=== PATIENT | male | born 1950 | race Caucasian/White ===

== ENCOUNTER 2025-03-26 18:06 | Inpatient (IN) | payer MEDICARE ==
[~2025-03-26] VITALS: Ht 170.2 cm; Wt 74.8 kg
--- NOTE | 2025-03-26 18:16 | ELECTROCARDIOGRAPH REPORT ---
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 WAYLON Mandel Measurements Intervals [place] Rate: 68 P: 22 OK: 136 QRS: 188 QRSD: 112 T: 94 QT: 411 QTc: 438 Interpretive Statements Sinus rhythm Probable lateral infarct, age indeterminate Electronically Signed On 03-27-2025 17:08:[address] WAYLON Mandel Please click the below link to view image of tracing.
[2025-03-26 18:27] LABS: MEAN PLATELET VOLUME 7.7 FL (7.4-10.4); RED CELL DISTRIBUTION WIDTH 13.4 % (11.5-14.5)
--- NOTE | 2025-03-26 18:38 | RADIOLOGY REPORT ---
CHEST RADIOGRAPH Indication: CP Technique: Single frontal view of the chest was obtained COMPARISON: None FINDINGS: Lines and Tubes: None Lungs: Clear Pleura: No effusion. No pneumothorax. Cardiomediastinal contours: Unremarkable Bones: No acute osseous abnormality. ACDF. IMPRESSION: No acute disease.
[2025-03-26 18:51] LABS: CREATININE 1.17 MG/DL (0.60-1.10); PRO BRAIN NATRIURETIC PEPTIDE 245 PG/ML (0-125); TOTAL CARBON DIOXIDE 28.1 MMOL/L (24-32); eCRCL 53 ML/MIN; eGFR 61 ML/MIN
--- NOTE | 2025-03-26 19:01 | Physician Documentation ---
History of Present Illness ~ Chief Complaint: Shortness of Breath Stated Complaint: SOB/ L ARM PAIN Time Seen by MD: 19:00 HPI Patient presents to the emergency room for evaluation of chest pain and shortness of breath. Onset of symptoms last night. Associated nausea vomiting with some degree of radiation into his left upper extremity. History of previous stroke as well as heart attacks. [facility]. No current symptoms. Patient does have history of atrial fibrillation that has not taken apixaban or Plavix today. Patient reports it has been many years since his last stress test. Medication Reconciliation Allergies: Coded Allergies: No Known Allergies (Unverified , 03/26/25) Review of Systems ROS All review of systems negative except as per HPI Physical Exam Vital Signs: Temperature: 97.3, Source: Temporal, Heart Rate: 60, Respiratory Rate: 12, BP: 117/67, Pulse Oximetry: 98, Weight: 72.730 Oxygen Flow Rate: 0 Physical Exam General: Patient is awake, alert, oriented x4 in no acute distress Head: Normocephalic and atraumatic. Eyes: Conjunctival normal. EOMI. PERRL. ENT: Mucous membranes moist. Neck: Supple, trachea is midline. Chest: Clear to auscultation bilaterally without rales, rhonchi, or wheezes. There is no accessory muscle use or retractions. Cardiac: RRR without murmurs, gallops, or rubs. Extremities: Normal strength. Normal range of motion. No deformities or edema. No calf tenderness to palpation Progress Results/Orders Results/Orders Orders - KRIS ELY MD Chest,Single View (03/26/25 18:25) Monitor (03/26/25 18:07) Saline Lock (03/26/25 18:07) Oxygen (03/26/25 18:07) Hs Troponin I W Calculations (03/26/25 20:07) Hs Troponin I W Calculations (03/26/25 21:07) Heparin 25,000 Unit/250ml Bag (Heparin 2 (03/26/25 19:10) Heparin 10,000 Unit/Ml 1ml (Heparin 10,0 (03/26/25 19:10) Cbc/Diff (03/27/25 03:00) Cbc/Diff (03/28/25 03:00) Cbc/Diff (03/29/25 03:00) Cbc/Diff (03/30/25 03:00) Cbc/Diff (03/31/25 03:00) Page Hospitalist (03/26/25 19:14) Fill Out Med Reconciliation (03/26/25 19:14) Cardiac Ptt (03/27/25 01:30) Svn Treatment (03/26/25 19:51) Completed Orders - KRIS ELY MD Chest,Single View (03/26/25 18:25) Cbc/Diff (03/26/25 18:07) BMP (03/26/25 18:07) PBNP (03/26/25 18:07) Electrocardiogram (03/26/25 18:07) Hs Troponin I W Calculations (03/26/25 18:07) Aspirin 325mg Tablet (Aspirin 325mg Tabl (03/26/25 19:10) Pt Inr (03/26/25 19:08) PTT (03/26/25 19:08) Heparin 10,000 Unit/Ml 1ml (Heparin 10,0 (03/26/25 19:10) Heparin 10,000 Unit/Ml 1ml (Heparin 10,0 (03/26/25 19:25) Hgb A1c (03/26/25 18:21) Ipratropium/Albuterol Nebule (Ipratrop/A (03/26/25 19:55) Medications Received in ER Medications (Trade) Dose Ordered Sig/Jonah Route PRN Reason Start Time Stop Time Status Last Admin Dose Admin (aspirin 325mg tablet) 1 tab ONCE ONCE PO 03/26/25 19:10 03/26/25 19:15 DC 03/26/25 19:37 1 TAB Heparin Sodium/ Dextrose 250 ml @ 9 mls/hr [id number] PRN IV TO MAINTAIN PTT WITHIN RANGE 03/26/25 19:10 03/26/25 19:32 9 MLS/HR (heparin 10,000 unit/ml 1ml inj) 4,000 units ONCE ONCE IV 03/26/25 19:25 03/26/25 19:26 DC 03/26/25 19:36 4,000 UNITS Vital Signs 03/26/25 03/26/25 03/26/25 03/26/25 18:25 18:42 18:46 19:48 Temp 97.3 Pulse 66 60 Resp 16 12 B/P (MAP) 96/59 117/67 (84) Pulse Ox 98 98 98 O2 Delivery Room Air* O2 Flow Rate 0 0 0 FiO2 21 03/26/25 19:52 Temp 97.3 Pulse 54 Resp 14 B/P (MAP) 131/69 (89) Pulse Ox 99 O2 Flow Rate 0 FiO2 21 Laboratory Tests Test 03/26/25 18:21 White Blood Count 4.6 Red Blood Count 4.61 L Hemoglobin 14.3 Hematocrit 41.6 L Mean Corpuscular Volume 90.2 Mean Corpuscular Hemoglobin 30.9 Mean Corpuscular Hemoglobin Concent 34.2 Red Cell Distribution Width 13.4 Platelet Count 197 Mean Platelet Volume 7.7 Neutrophils (%) (Auto) 50.1 Lymphocytes (%) (Auto) 30.9 Monocytes (%) (Auto) 9.0 Eosinophils (%) (Auto) 8.9 H Basophils (%) (Auto) 1.1 H Neutrophils # (Auto) 2.3 Lymphocytes # (Auto) 1.4 Monocytes # (Auto) 0.4 Eosinophils # (Auto) 0.4 Basophils # (Auto) 0.0 CBC Comment Prothrombin Time 11.3 INR International Normalized Ratio 1.1 Activated Partial Thromboplast Time 29 Coagulation Comments Sodium Level 137 Potassium Level 4.0 Chloride Level 102 Carbon Dioxide Level 28.1 Anion Gap 7 L Blood Urea Nitrogen 9 Creatinine 1.17 H Estimated GFR/1.73 m2 61 BUN/Creatinine Ratio 7.7 L Glucose Level 145 H Hemoglobin A1c 6.6 H Calcium Level 8.4 L Troponin I High Sensitivity 130 *H Pro-B-Type Natriuretic Peptide 245 H Albumin 4.3 Chemistry Comments EKG/XRAY/CT/US/VASC/MRI EKG : Additional Comment EKG interpreted by myself shows time of 18 15, rate 68, sinus rhythm, normal axis, no ST changes Medical Decision Making Additional information obtaine: N/A Findings Patient presents to the emergency room with chief complaint of chest pain as per HPI. Differentials include but are not limited to ACS, pulmonary embolism, aortic pathology, musculoskeletal pain, reflux therefore emergent labs and ninfa ging is indicated. Patient is not having any current symptoms therefore I do not believe he is suffering from pulmonary embolism or aortic pathology. Noted elevation of troponins with no ST-elevation on EKG. Given patient's history of myocardial infarction along with chief complaint of chest pain I have initiated aspirin and heparin and we will admit for further investigation. Heart Score: 5 Differential Dx:Considerations: Include: anxiety, asthma, bronchitis, cardiogenic shock, CHF, COPD, dysrhythmia, hypertension, accelerated, hypertension, essential, hypertension, malignant, hyperventilation, hyponatremia, myocardial infarction, panic attack, pneumonia, pneumonitis, pneumothorax, PSVT, pulmonary embolism, respiratory distress, respiratory failure, sinusitis, upper resp. infection, other Departure Admitted to Inpatient Unit: yes, to hospitalist Impression: Primary Impression: NSTEMI (non-ST elevated myocardial infarction) Condition: Guarded Referrals: NO PRIMARY CARE PROVIDER (PCP) Critical Care Note Total Time (mins): 30 Critical Care Note The very real possibility of a deterioration of this patient's condition required the highest level of my preparedness for sudden, emergent intervention. I provided critical care services, which included medication orders, frequent reevaluations of the patient's condition and response to treatment, ordering and reviewing test results, and discussing the case with various consultants. Excludes time spent performing separately billable procedures. The critical care time associated with the care of the patient was 30 minutes not counting procedures Signature Scribe Signature: No scribe Attestation: The note accurately reflects work and decisions made by me.Kris Ely MD 03/26/25 19:13 KRIS ELY MD Mar 26, 2025 19:01
[2025-03-26] MEDS ORDERED: heparin 10,000 units/1 ML INJ IV PRN (19:10)
[2025-03-26] MEDS ORDERED: heparin 10,000 units/1 ML INJ IV ONE (19:15)
[2025-03-26 19:21] LABS: APTT 29 SECONDS (22-32); INR 1.1 INR
[2025-03-26] MEDS ORDERED: potassium Cl 40MEQ/1/2NS 520ml 520 ML IV PRN (19:30)
[2025-03-26] MEDS ORDERED: magnesium sulf-water 2g/50mL 50 ML IV PRN (19:30)
[2025-03-26] MEDS ORDERED: potassium Cl 20 mEq SR tablet PO PRN ×2 (19:30)
[2025-03-26] MEDS ORDERED: magnesium sulf-water 4G/100mL 100 ML IV PRN (19:30)
[2025-03-26] MEDS ORDERED: magnesium Cl slow-release 64mg tablet PO PRN (19:30)
[2025-03-26] MEDS ORDERED: ondansetron/PF 4mg/2ml inj IV PRN (19:30)
[2025-03-26] MEDS: heparin 25,000 UNIT/250ml bag 250 ML IV PRN (19:32)
[2025-03-26] MEDS: heparin 10,000 units/1 ML INJ IV ONE ×2 (19:36→19:37)
[2025-03-26] MEDS: PERFLUTREN PROTEIN-A MICROSPHR (Optison) 0.22 MG/ML 3ML VIAL IV ONE (19:41)
[2025-03-26] MEDS: ipratropium/albuterol 3ml nebule NEB ONE (20:05)
[2025-03-26 20:06] VITALS: PULSE 55; RESP 18; O2SAT 100
[2025-03-26] MEDS: MESSAGE TO NURSING IV ONE (20:12)
[2025-03-26 20:19] VITALS: PULSE 62; RESP 14; O2SAT 100
[2025-03-26 20:49] VITALS: BP 130/62; PULSE 57; RESP 13; TEMP 97.4; O2SAT 99
--- NOTE | 2025-03-26 20:51 | HISTORY AND PHYSICAL-Residence ---
History & Physical Providers to CC Resident Creating Document: AMADO PUENTE RES CC: LAY HO MD ~ History of Present Illness Primary Medical Doctor: [facility] Reason for Admit\Complaint: Chest pain and discomfort for past two days History of Present Illness 75-year-old male with past medical history of PAF on apixaban, CVA with left- sided hemiparesis, CAD s/p stents to LAD, RCA, hypertension, type 2 diabetes mellitus presented to the ER with chief complaints of chest pain. He describes pain in the epigastrium, sharp, tightening sensation, associated with shortness of breaths, radiating to left lateral on associated with paresthesias, which started at 10:00 a.m. yesterday it persisted for 30 minutes to 1 hour and then relieved spontaneously. He had similar kind of chest pain today morning and the shortness of breath was worsening. He has no history of recent sildenafil intake. Denies fever palpitations, dizziness. He had similar kind of chest pain in 2006 and undergone stents that time. Currently pain is relieved however he is feeling anxious. He went to [facility] and they recommended him to go to ER Allergies: Coded Allergies: No Known Allergies (Unverified , 03/26/25) Past Medical History Past Medical History Paroxysmal atrial fibrillation on apixaban Type 2 diabetes mellitus on insulin Hypertension Hyperlipidemia statin and ezetimibe CVA with left residual hemiparesis in 2016, currently on Plavix History of HI in 2006, undergone angiogram with stents to LAD and RCA History of HI in 2016 with recent in of RCA Obstructive sleep apnea -using CPAP intermittently Anxiety BPH Past Surgical History Surgical History Comment Appendectomy Cervical laminar fusion surgery Past Social History Social History Comment Nonsmoker, denies alcohol intake, denies illicit drug use, independent for ADLs, uses cane for ambulation 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 no change in appetite/weight HEENT: No blurring of the vision, No sore throat, epistaxis, tinnitus Cardiovascular: Complaining of chest discomfort, shortness of breath, no orthopnea No palpitations, syncope. No pedal edema Respiratory: No cough,, hemoptysis Gastrointestinal: No abdominal pain, nausea, vomiting. No diarrhea, constipation, melena. Genitourinary: Does have dysuria secondary to BPH No frquency, urgency, incontinence, nocturia. No hematuria Musculoskeletal: No arthralgia, myalgia Endocrine: No fatigue, polydipsia, polyuria. No heat or cold intolerance Neurologic: Positive for recent gait changes, swinging of the case, weakness of the left upper and lower extremity since 2016 No headache, vertigo. No weakness, numbness or tingling of extremities Psychiatric: History of anxiety attacks No hallucinations/delusions, no anhedonia, no suicidal ideation\ Hematologic: No bleeding or bruises Reviewed in full. All negative except for pertinent positives in HPI Exam Vitals: Vital Signs Date Time Temp Pulse Resp B/P (MAP) Pulse Ox O2 Delivery O2 Flow Rate FiO2 03/26/25 20:19 62 14 100 Room Air* 0 21 03/26/25 19:52 97.3 131/69 (89) General: General: Pleasant elderly male, AAO x4, not in apparent distress, in the middle of conversation patient got emotional and said that he does not want to stay here and cried. He stated he has anxiety attacks Head: Normocephalic with an atraumatic Eyes: Pupils- 3mm, reacting to light, conjunctiva- anicteric Nose and throat: No polyps, septum- normal, no mucosal ulcers Neck: Supple, no lymphadenopathy, no carotid bruit Respiratory: No use of accessory muscles of respiration, Bilateral normal vesiscular breath sounds heard. No wheeze, rhochi or creps Cardiac: S1-S2 heard, rythm regular, no gallop/murmur Abdomen: non distended, no tenderness, no organomegaly, bowel sounds- heard Extremities: Discoloration of the both lower extremities however no pedal edema no clubbing, no deformities, peripheral pulses- 2+ Skin: warm and dry, no rash, no purpura Neuro: Left upper limb and lower limb power 4- by five No new onset focal deficit, gross cranial nerve exam- normal Diagnostic Data Last Recorded Lab Results: 03/26/25182003/26/251820 Diagnostic Data: Laboratory Tests Test 03/26/25 18:21 Prothrombin Time 11.3 SECONDS (9.0-12.0) INR International Normalized Ratio 1.1 INR Activated Partial Thromboplast Time 29 SECONDS (22-32) Coagulation Comments Advance Care Planning Advanced Care plannin - 30 Minutes (Code status is discussed with him and he is full code however patient states that he has had cardiac arrest he would like his to make decisions regarding further resuscitative measures once the resuscitation was started) Additional Plan 75-year-old male with past medical history of PAF on apixaban, CVA with left- sided hemiparesis, CAD s/p stents to LAD, RCA, hypertension, type 2 diabetes mellitus presented to the ER with chief complaints of chest pain at rest. Wells score-0 NSTEMI- suspect anterolateral wall HI CAD, s/p stents to LAD, RCA -heart score- 6 -LIDIA score- 5- -sandra score- 114 (6 %-Probability of from admission to 6 months) -EKG showed sinus Tyrese, low voltage complexes in limb leads, T-wave inversions in V2 to V6, I, aVL with lead progression of R-wave -high sensitivity troponins x3 130, -received aspirin 325 mg in the ER and started on heparin drip Plan -continue heparin drip -follow up on 2D echo, lipid panel, repeat EKG in the a.m. -aspirin 81 mg once daily, atorvastatin 40 mg once daily -NTG patch 0.1 mg/hour for chest pain -metoprolol not started in view of bradycardia -consulted coremaker Dr. Daja Kaplan, awaiting recommendations Paroxysmal atrial fibrillation CHADS-VASc six -current EKG sinus, -hold apixaban -resume home meds once medication reconciliation is done Hypertension -current blood pressure 130/69 -monitor BP, and resume home meds once med rec was done Type 2 diabetes mellitus with A1c of 6.6 -current blood glucose was 145 -started on low-dose insulin 6 units t.i.d. and low-dose supplemental insulin protocol Possible Stephen -cr-1.17, baseline- unknown -f/u on urine lytes and bmp -hydrate with NS before angiogram CVA with left residual hemiparesis -takes Plavix and atorvastatin at home. -has a new onset gait difficulties for the past one month and ordered CT brain for the morning cpap NOLAN -uses CPAP intermittently BPH -continue his home medications of tamsulosin Anxiety -patient had an anxiety episode, given Valium 2.5 mg one dose p.o. Code Status: Full code Line/tube: PIV DVT prophylaxis: Heparin Nutrition: Heart healthy diet, NPO after midnight PT: Yes Prognosis: Guarded Disposition: Continue care in PCU, cardiology recommendations pending, med rec pending Amado Puente MD PGY-3 resident Attending Physician Attestation Evaluation via HIPAA compliant A/V device. I discussed the case with the resident and I agree with the resident's documentation. 75-year-old man with a history of CAD s/p PCI with COBY, essential hypertension, paroxysmal atrial fibrillation, diabetes mellitus type 2, prior stroke with residual left hemiparesis and obstructive slee now admitted with anginal symptoms.Criteria are met for NSTEMI. The treatment plan includes: Usual medical therapy for ACS including antiplatelet therapy with aspirin and clopidogrel, statin therapy, IV UFH and topical nitrates. A transthoracic echocardiogram has been ordered and a Cardiology consultation has been requested. The patient's heart rate is less than 60 off rate-control medications. Expectant management. Control of hyperglycemia with a correctional insulin sliding scale. Time spent 50 minutes. Date of Service: Mar 26, 2025 Billing Provider: LAY HO MD, HARIVARSHA, RES Mar 26, 2025 20:51 LAY HO MD Mar 27, 2025 06:53
[2025-03-26] MEDS ORDERED: dextrose 50%-water 50ml dispensing syringe IV PRN ×2 (21:40)
[2025-03-26] MEDS ORDERED: DEXTROSE 15 GM of carb/4 tabs (each vial/BOTTLE has 4 tablets) PO PRN ×2 (21:40)
[2025-03-26] MEDS ORDERED: glucagon, human recombinant 1mg kit SUBCUT PRN (21:40)
[2025-03-26 22:00] VITALS: BP 135/48; PULSE 58; RESP 13; RESP 16; TEMP 98.6; O2SAT 98; O2SAT 99
[2025-03-26] MEDS: K and/or MAG REPLACEMENT MC SCH (22:10)
[2025-03-26] MEDS: docusate sod 100mg capsule PO SCH (22:16)
[2025-03-26] MEDS ORDERED: APIX5TAB3 PO (23:53)
[2025-03-26] MEDS ORDERED: SIME80TA16 PO (23:53)
[2025-03-26] MEDS ORDERED: ROSU40TA89 PO (23:53)
[2025-03-26] MEDS ORDERED: DICL100G59 TOP (23:53)
[2025-03-26] MEDS ORDERED: ZOLP5TAB19 PO (23:53)
[2025-03-26] MEDS ORDERED: MECL-302 PO (23:53)
[2025-03-26] MEDS ORDERED: EZET10TA6 PO (23:53)
[2025-03-26] MEDS ORDERED: ERYT1OIN6 LEFTEYE (23:53)
[2025-03-26] MEDS ORDERED: NITR0.4T48 SL (23:53)
[2025-03-26] MEDS ORDERED: INSU300I10 SUBCUT (23:53)
[2025-03-26] MEDS ORDERED: SPIR25TA PO (23:53)
[2025-03-26] MEDS ORDERED: TAMS-55 PO (23:53)
[2025-03-26] MEDS ORDERED: TIOTROP INH (23:53)
[2025-03-26] MEDS ORDERED: PROP10DR4 EACHEYE (23:53)
[2025-03-26] MEDS ORDERED: KETO15CR2 TOP (23:53)
[2025-03-26] MEDS ORDERED: FURO40TA4 PO (23:53)
[2025-03-26] MEDS ORDERED: PANT40TA54 PO (23:53)
[2025-03-26] MEDS ORDERED: HYDR-3965 PO (23:53)
[2025-03-26] MEDS ORDERED: OLODATEROL INH (23:53)
[2025-03-26] MEDS ORDERED: albuterol INH (23:53)
[2025-03-27] VITALS (18 sets, daily range): BP systolic 71–134; BP diastolic 35–66; PULSE 49–81; RESP 13–19; TEMP 97.3–97.6; O2SAT 96–100
[2025-03-27 00:52] LABS: LEUKOCYTE ESTERASE ,URINE NEGATIVE (Neg); NITRITES, URINE NEGATIVE (Neg); OCCULT BLOOD,URINE SMALL (Neg)
[2025-03-27 00:53] LABS: UA COLLECTION TYPE NON-SPECIFIED
[2025-03-27 00:55] LABS: SQUAMOUS EPITHELIAL CELL,UR FEW /LPF (FEW)
[2025-03-27 01:08] LABS: OSMOLALITY UA 141 MOSM/K (50-1400)
[2025-03-27 01:32] LABS: CREATININE,URINE RANDOM 29.4 MG/DL; UA UREA RANDOM 142.0 MG/DL
[2025-03-27 01:42] LABS: TOTAL PROTEIN,URINE RANDOM < 6.0 MG/DL
[2025-03-27 02:10] LABS: MEAN PLATELET VOLUME 7.8 FL (7.4-10.4); RED CELL DISTRIBUTION WIDTH 13.2 % (11.5-14.5)
[2025-03-27 02:12] LABS: CHOL/HDL RATIO 2.7 (0.00-4.99); CREATININE 1.12 MG/DL (0.60-1.10); LDL CHOLESTEROL 59 MG/DL (50-100); TOTAL CARBON DIOXIDE 29.5 MMOL/L (24-32); eCRCL 55 ML/MIN; eGFR 64 ML/MIN
[2025-03-27] MEDS: MESSAGE TO NURSING IV ONE ×4 (02:45→19:40)
[2025-03-27] MEDS: heparin 25,000 UNIT/250ml bag 250 ML IV PRN (04:34)
[2025-03-27] MEDS: HYDROcodone/acetaminophen 5mg/325mg tablet PO ONE (05:09)
[2025-03-27] MEDS: INSULIN LISPRO 100 UNIT/ML INSULN.PEN MULTI-DOSE SQ SCH ×2 (06:52→09:00)
[2025-03-27] MEDS: pantoprazole 40mg Tablet.DR PO SCH (07:55)
--- NOTE | 2025-03-27 08:36 | ELECTROCARDIOGRAPH REPORT ---
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 WAYLON Mandel Measurements Intervals [place] Rate: 52 P: 9 NV: 131 QRS: 35 QRSD: 111 T: 88 QT: 454 QTc: 423 Interpretive Statements Sinus rhythm Low voltage, precordial leads RSR' in V1 or V2, right VCD or RVH Nonspecific T abnrm, anterolateral leads Electronically Signed On 03-27-2025 17:06:[address] WAYLON Mandel Please click the below link to view image of tracing.
--- NOTE | 2025-03-27 09:32 | RADIOLOGY REPORT ---
EXAM: CT CT HEAD INDICATION: RECENT CHANGES IN GAIT, W/ H/O CVA TECHNIQUE: CT of the head without intravenous contrast. Coronal and sagittal reformatted images are submitted. Radiation Dose : 1. Head: CT Dose: CTDI volume is 63.4 mGy. Dose-length product is 1096.6 mGy*cm The dose indicators for CT are the volume Computed Tomography (CT) Dose Index (CTDIvol) and the Dose Length Product (DLP), and are measured in units of mGy and mGy-cm, respectively. These indicators are not patient dose, but values generated from the CT scanner acquisition factors. The report includes radiation exposure data for exposures received during this examination. All CT scans at this medical facility are performed using dose modulation techniques as appropriate to a performed exam including the following: Automated exposure control was utilized; adjustment of the MA and/or KV according to patient size; and use of iterative reconstruction technique. COMPARISON: None FINDINGS: There is no evidence of acute intracranial hemorrhage, extra-axial collection, mass effect, midline shift, herniation or hydrocephalus. The ventricles, sulci and cisterns are age appropriate. There is a hypodensity in the right temporal and medial right occipital lobe reflecting encephalomalacia. There is encephalomalacia in the left cerebellum. There are periventricular and subcortical hypodensities, nonspecific, but likely reflecting sequelae of chronic microvascular ischemic changes. The mastoid air cells are clear. There is mucosal thickening in the sphenoid sinus No depressed calvarial fracture. The surrounding soft tissues are unremarkable. IMPRESSION: 1. No acute intracranial abnormality. If there is concern for acute process, MRI of the brain without intravenous contrast is recommended. 2. Sequelae of prior right temporal and medial right occipital lobe infarcts. 3. Sequelae of prior left cerebellar infarct. 4. Mild to moderate chronic microvascular ischemic changes.
[2025-03-27] MEDS: HYDROmorphone inj. 0.5 MG/0.5 ML DISP.SYRIN IM ONE (09:36)
[2025-03-27] MEDS: HYDROcodone/acetaminophen 10/325mg tab PO ONE ×2 (10:01→10:57)
[2025-03-27] MEDS ORDERED: metoprolol tartrate 1mg/ml inj IV PRN (10:50)
[2025-03-27] MEDS: regadenoson 0.4mg/5ml syringe IV PRN (13:17)
[2025-03-27] MEDS: aminophylline 250mg/10ml inj. IV PRN (13:34)
--- NOTE | 2025-03-27 14:26 | PROGRESS NOTE- Residence ---
Progress Note - Resident Providers to CC Resident Creating Document: DONAVON LAWS RES ~ Antibiotic Timeout Antibiotic Ordered?: No Subjective Seen and examined patient at the bedside,He is anxious. Reports severe pain in the left side of the body and we started on Narco 10mg. Dr Washburn is on board and recommended angiography tomorrow in am Objective Vital Signs Date Time Temp Pulse Resp B/P (MAP) Pulse Ox O2 Delivery O2 Flow Rate FiO2 03/27/25 13:55 54 16 110/51 100 Room Air 0.0 03/27/25 02:00 97.3 03/26/25 20:19 21 Result Diagram: 03/27/25 0140 03/27/25 0140 Awake , alert, and oriented x4 HEENT: Atraumatic, normocephalic, EOMI, Eyes are dry and red Neck: Trachea midline. Supple, full range of motion, no JVD Cardiac: Regular rhythm, regular rate with no murmurs all over the precordium. Respiratory: Equal breath sounds bilaterally, no tachypnea, no wheezing ,rub or rales, Chest wall is symmetric and without deformity. Gastrointestinal: Abdomen symmetric, non-distended, soft, non-tender, normal bowel sounds x4 quadrant, normoactive, no hepatosplenomegaly Musculoskeletal: No pedal edema Neurological: Mental status exam: alert and consciousness, orientation, memory, speech Left upper limb and lower limb power 4/5, No new onset focal deficit, gross cranial nerve exam- normal Extremities : No Edema, peripheral pulses felt, No deformities,Discoloration of the both lower extremities however no pedal edema no clubbing, no deformities, peripheral pulses- 2+ Psychiatric:Appropriate mood and affect,No hallucinations or suicidal ideation Coagulation Studies Laboratory Tests Test 03/26/25 18:21 03/27/25 12:22 Prothrombin Time 11.3 SECONDS (9.0-12.0) INR International Normalized Ratio 1.1 INR Activated Partial Thromboplast Time 29 SECONDS (22-32) APTT (Heparin Protocol) 66 SECONDS (45-60) H Coagulation Comments Advance Care Planning Advanced Care plannin - 30 Minutes Plan Plan 75-year-old male with past medical history of PAF on apixaban, CVA with left- sided hemiparesis, CAD s/p stents to LAD, RCA, hypertension, type 2 diabetes mellitus presented to the ER with chief complaints of chest pain at rest. Wells score-0 NSTEMI CAD-s/p stents to LAD, RCA, heart score- 6, LIDIA score- 5-, sandra score- 114 (6 %-Probability of from admission to 6 months) Initial EKG showed sinus Tyrese, low voltage complexes in limb leads, T-wave inversions in V2 to V6, I, aVL with lead progression of R-wave high sensitivity troponins 130<114<117, Echo Shows-LVEF 50-55 %, RVSP 30 mmHg Lexiscan-no reversible perfusion,Fixed anterior wall, apical defects, left ventricular ejection fraction is 34 %. continue heparin drip, aspirin 81 mg once daily, atorvastatin 40 mg once daily Nitroglycerin p.r.n. for chest pain, in view of bradycardia we would not initiate metoprolol Is Aware of the patient, Angiogram tomorrow in am Paroxysmal atrial fibrillation CHADS-VASc 6-last EKG sinus hold apixaban and patient is currently on heparin drip Hypertension Current Blood pressure is 109/50L-In View of Soft Blood pressure-We are currently Holding Home Blood pressure Meds Congestive heart failure with mildly reduced ejection-not in acute exacerbation Per patient he uses lasix and spironolactone since 2006 for is dx CHF at that time he intially has 25% ef but later improved but this is per patient Patient denies any symptoms of volume overload Pro BNP-245, chest x-ray-No acute disease. Echocardiogram-shows LVEF 50-55%, RVSP 30 mmHg In view of very low blood pressure we are not continuing home med Lasix and spironolactone-we will continue once blood pressure normalizes Type 2 diabetes mellitus with A1c of 6.6 Continue low-dose insulin 6 units t.i.d. and low-dose supplemental insulin protocol Chronic pain Muscle spasm Started on [place] 10 p.r.n., cyclobenzaprine Acute Kidney Injury Silvia renal tubular stasis Improving cr-1.12, baseline- unknown Urine Sodium-29, Urine Urea-142 CVA with left residual hemiparesis takes Plavix and atorvastatin at home. has a new onset gait difficulties for the past one month CT head Shows -No acute intracranial abnormality. If there is concern for acute process, MRI of the brain without intravenous contrast is recommended. Sequelae of prior right temporal and medial right occipital lobe infarcts. Sequelae of prior left cerebellar infarct. Mild to moderate chronic microvascular ischemic changes. Obstructive sleep apnea- uses CPAP intermittently BPH -continue his home medications of tamsulosin Anxiety -Given one dose of valium, Pending med rec Code Status: Full code Line/tube: PIV DVT prophylaxis: Heparin Nutrition: Heart healthy diet PT: Yes Prognosis: Guarded Disposition: Continue care in PCU, with telemetry- Patient will undergo angiogram tomorrow by Dr Wu Laws PGY1-Internal Medicine Resident Date of Service: Mar 27, 2025 Billing Provider: TRISH LITTLE MD Common Visit Codes: [id number] INP/OBS CARE(HIGH) DONAVON LAWS, ROBIN Mar 27, 2025 14:26 TRISH LITTLE MD Mar 28, 2025 06:39
--- NOTE | 2025-03-27 14:49 | RADIOLOGY REPORT ---
Procedure: [place] NM AILIN SCAN Exam Date: 03/27/2025 12:28 PM Reason for study/Clinical History: NSTEMI Comparison Study: None Myocardial Perfusion Study with SPECT Technique: The patient received an intravenous injection of 8.8 mCi of technetium-99m sestamibi while at rest. After a short delay, SPECT tomographic images of the heart were obtained. The patient then went to the stress lab where they received an intravenous infusion of 0.[address] andard protocol. 35.2 mCi of technetium-99m sestamibi was injected intravenously immediately after the start of the lexiscan infusion. Gated SPECT tomographic images of the heart were acquired and processed. 75 mg of aminophylline were given for reversal due to hypotension. Findings: No reversible perfusion defect. Fixed anterior wall defect. Fixed apical defect. End diastolic volume: 106 mL End systolic volume: 70 mL The left ventricular ejection fraction is 34 %. (normal greater than 50%) Global hypokinesis/dyskinesis Impression: No reversible defect. Fixed anterior wall, apical defects The left ventricular ejection fraction is 34 %. Global hypokinesis/dyskinesis
--- NOTE | 2025-03-27 17:23 | CARDIOLOGY REPORT ---
APPROVED REPORT EXAM: Comprehensive 2D, Doppler, and color-flow Echocardiogram. Patient Location: [facility] Blood Pressure: 134/66 mmHg Heart Rate: 79-116 bpm Indications Chest Pain Shortness of Breath Atrial Fibrillation Troponin: 130 ProBNP: 245 Coronary Artery Disease HX of Stents x 3 Hypertension Diabetes NO MAGNETIC DOCTOR (per patient) NO Previous ECHO 2D Dimensions LA Diam 2.2 cm IVSd 1.1 (0.7-1.1cm) LVDd 4.9 cm PWd 1.0 (0.7-1.1cm) IVSs 1.4 (0.8-1.2cm) LVDs 3.6 (2.5-4.0cm) PWs 1.6 (0.8-1.2cm) LVOT Diameter 2.04 (1.8-2.4cm) LVEF(%) 51.7 (>50%) Ao Asc Diam. 3.26 cm IVC 13.60 mm FS (%) 26.5 % SV 57.1 ml CO 6.3 L/min M-Mode Dimensions Left Atrium(MM) 2.93 (2.5-4.0cm) Aortic Root 3.99 (2.2-3.7cm) Aortic Cusp Exc 2.26 (1.5-2.0cm) MV EPSS 1.0 (<0.5cm) Aortic Valve AoV Peak Nael. 104.1 cm/s AoV VTI 25.6 cm AO Peak GR. 4.3 mmHg AO Mean GR. 3 mmHg LVOT VTI 19.32 cm LVOT Peak Nael. 84.6 cm/s AMADOU(VTI)/BSA 2.46 cm2/m2 AMADOU (VTI) 2.46 cm2 AI P 1/2 Time 944 ms AV DI 0.75 % Mitral Valve MV E Velocity 45.3 cm/s MV Peak Gr. 1 mmHg MV DECEL TIME 348 ms MV A Velocity 44.4 cm/s MV Mean Gr. 0 mmHg MV PHT 120 ms E/A Ratio 1.0 MVA (PHT) 1.83 cm2 MV VMax 59.5 cm/s MV VMean 32.4 cm/s MVA VTI 2.76 cm2 MV VTI 22.8 cm TDI Lateral E' P. V 7.12 cm/s E/Lateral E' 6.4 Tricuspid Valve TR P. Velocity 223 cm/s RAP ESTIMATE 10 mmHg TR Peak Gr. 20 mmHg RVSP 30 mmHg LEFT VENTRICLE Normal LV size and wall thickness. Overall systolic function is mildly impaired Overall LVEF is about 50%. RIGHT VENTRICLE Right ventricle is grossly normal in size and function. ATRIA The left atrium size is normal. AORTIC VALVE Trileaflet AV appears mildly sclerotic without stenosis. Mild insufficiency. MITRAL VALVE Mitral valve leaflets are mildly thickened with mild annular calcification. No stenosis. TRICUSPID VALVE The tricuspid valve is normal in structure with trace regurgitation. PULMONIC VALVE Pulmonic valve is grossly normal in structure without insufficieincy. GREAT VESSELS Aortic root is mildly dilated (4.0 cm). The ascending aorta is normal in size. IVC is normal in size. PERICARDIUM Normal pericardium. No effusion. Other Information Study Quality: Adequate Conclusion Overall LVEF is about 50%. Normal LV size and wall thickness. Overall systolic function is mildly impaired Right ventricle is grossly normal in size and function. Trileaflet AV appears mildly sclerotic without stenosis. Mild insufficiency. Mitral valve leaflets are mildly thickened with mild annular calcification. No stenosis. The tricuspid valve is normal in structure with trace regurgitation. Pulmonic valve is grossly normal in structure without insufficieincy. Normal pericardium. No effusion.
--- NOTE | 2025-03-27 17:23 | CONSULTATION REPORT ---
Cardiac Consultation Report Providers to CC ~ Subjective Subjective CARDIOLOGY CONSULTATION: WAS CALLED BY NUCLEAR MEDICINE THAT THIS PATIENT HAD ST SEGMENT ELEVATION V1 AND V2 IN 12 LEAD LEAD DURING HE IS NUCLEAR STRESS TEST. IT WAS REVERSED BY AMINOPHYLLINE INTRAVENOUSLY. HAD PRIOR MULTIPLE STROKES AND HE IS NOT A VERY GOOD HISTORIAN BUT BETWEEN HIM AND HIS IT TURNS OUT THAT HE INITIALLY WENT TO THE EMERGENCY ROOM FOR HER STERNAL SQUEEZING CHEST PAIN AND LEFT ARM PAIN. HE DENIES HAVING THE SAME SYMPTOMS DURING HIS NUCLEAR SCAN HE HAS HAD DIFFUSE MALAISE AND PALPITATIONS AND DID NOT FEEL RIGHT. MEDICAL HISTORY IS EXTENSIVE: 1. 2006 [place] PCI OF LEFT ANTERIOR DESCENDING AND RIGHT CORONARY CEREBROVASCULAR AT THAT TIME WITH HEMISPHERE CVA AND SUBSEQUENT LEFT SIDE WEAKNESS. AMBULATES WITH CANE. 2. TWO THOUSAND NINE CORONARY ANGIOGRAM IN [place]. ONE THOUSAND EIGHTEEN NUCLEAR STRESS TEST WITH ANTERIOR APICAL INFARCT NO REVERSIBILITY 1021 ECHOCARDIOGRAM EJECTION 40% APRIL 19, 2024 [place] EJECTION FRACTION 45% PROBABLE APICAL AKINESIS TECHNICALLY LIMITED MILD AI AND MR. 3. PAROXYSMAL ATRIAL FIBRILLATION ANTICOAGULATED ON ELIQUIS HOWEVER PATIENT TELLS ME THAT HE HAD HIS STROKE FROM A CLOT IN HIS LEFT VENTRICLE. 4. HYPERTENSION HYPERLIPIDEMIA DIABETES MELLITUS OBSTRUCTIVE SLEEP APNEA GASTROESOPHAGEAL REFLUX CHRONIC OBSTRUCTIVE PULMONARY DISEASE HISTORY OF CEREBROVASCULAR ACCIDENT. 5. 1021 C5 THROUGH T1 SURGERY WITH INSTRUMENTATION. CONSEQUENT CHRONIC NEUROPATHY AND HYPERESTHESIA. SIDE AFFECTED. 6. PROSTHETIC HYPERTROPHY. MEDICATIONS ARE EXTENSIVE AN OUTPATIENT ELIQUIS CYCLOSPORINE EYE DROPS HAD A FINE FEW FUROSEMIDE 40 MG NORCO NEEDED INSULIN KETOCONAZOLE MECLIZINE NITROGLYCERIN PANTOPRAZOLE POLYETHYLENE GLYCOL ROSUVASTATIN SIMETHICONE SPIRONOLACTONE TAMSULOSIN ZOLPIDEM. Objective Vitals Vital Signs Date Time Temp Pulse Resp B/P (MAP) Pulse Ox O2 Delivery O2 Flow Rate FiO2 03/27/25 13:55 54 16 110/51 100 Room Air 0.0 03/27/25 11:00 97.5 03/26/25 20:19 21 Lab Results: 03/27/25 0140 03/27/25 0140 Objective CAROTID NO BRUIT CHEST CLEAR TO AUSCULTATION PERCUSSION HEART NO MURMUR HEARD NO S3 GALLOP NO RUB ABDOMEN ACTIVE BOWEL SOUNDS NO BRUITS PULSES PLUS TWO IN UPPER EXTREMITIES LOWER EXTREMITIES. EDEMA. LEFT SIDE IS VERY WEAK COMPARED TO THE RIGHT SIDE. NEEDS A CANE AND HE SEEMS UNSTEADY ATAXIC. Coagulation Studies Laboratory Tests Test 03/26/25 18:21 03/27/25 12:22 Prothrombin Time 11.3 SECONDS (9.0-12.0) INR International Normalized Ratio 1.1 INR Activated Partial Thromboplast Time 29 SECONDS (22-32) APTT (Heparin Protocol) 66 SECONDS (45-60) H Coagulation Comments Other Results NUCLEAR STRESS TEST: REVIEWED APICAL FIXED DEFECT. NO OBVIOUS REVERSIBILITY. PATIENT FRACTION 34%. ECHOCARDIOGRAM REVIEWED APICAL DEFECT NO THROMBUS NOTED EJECTION FRACTION APPROXIMATELY 40%. CT OF HEAD: BITEMPORAL AND MEDIAL RIGHT OCCIPITAL LOBE INFARCTS. LEFT CEREBELLAR INFARCT. OLD. Problem\Assessment\Plan Additional Plan IMPRESSION: PATIENT WAS TRANSFERRED FOR SYMPTOMS OF ANGINA PECTORIS. STROKES ARE OLD. TROPONINS HAVE REMAINED STABLE AT 0.14. +) HAVE PROGRESSIVELY WEAKENED DURING THE PAST FEW MONTHS. PATIENT THINKS HE MAY HAVE HAD AN INTERCURRENT STROKE. NO OLD CAT SCAN OR MRI. DID HAVE ST ELEVATION DURING THE NUCLEAR STRESS TESTING HOWEVER THERE IS NO DOCUMENTATION THAT IS BY TECHNICIANS CALLING ME. RECOMMENDATION: 1. DIAGNOSTIC HEART CATHETERIZATION RISKS BENEFITS ALTERNATIVES DISCUSSED WITH PATIENT AND . RISKS INCLUDE AND NOT RESTRICTED TO STROKE MYOCARDIAL INFARCTION RENAL FAILURE NEUROLOGIC VASCULAR COMPLICATIONS BLEEDING COMPLICATIONS ALLERGIC REACTION. INTERVENTION NEEDED. HE IS ON ELIQUIS AN OUTPATIENT WE WILL NEED TO HOLD FOR 48 HOURS HE IS SCHEDULED FOR 5:00 P.M. 03/28/2025. IN THE MEANTIME HE HAS BEEN PLACED ON HEPARIN. 2. IF HE HAS HAD PROGRESSION OF HIS CORONARY ARTERIAL DISEASE AND MAY REQUIRE CORONARY BYPASS GRAFTING I ASKED HIM TO THINK ABOUT IT IF HE IS WILLING TO DO THAT OR NOT HE WOULD BE A VERY DIFFICULT LONG-TERM RECOVERY. 3. IF HE WOULD REQUIRE CORONARY BYPASS GRAFTING I WOULD RECOMMEND AN MRI HIS BRAIN PRIOR TO THAT. ANIL OLRD MD Mar 27, 2025 17:23
[2025-03-27] MEDS: albuterol 2.5 MG/3 ML nebule NEB ONE (20:27)
[2025-03-28] VITALS (15 sets, daily range): BP systolic 92–133; BP diastolic 42–79; PULSE 48–86; RESP 12–19; TEMP 97.4–98.6; O2SAT 94–99
[2025-03-28] MEDS: HYDROcodone/acetaminophen 10/325mg tab PO PRN ×2 (01:29→16:41)
[2025-03-28 01:47] LABS: MEAN PLATELET VOLUME 7.8 FL (7.4-10.4); RED CELL DISTRIBUTION WIDTH 13.4 % (11.5-14.5)
[2025-03-28 01:48] LABS: CREATININE 1.25 MG/DL (0.60-1.10); TOTAL CARBON DIOXIDE 30.4 MMOL/L (24-32); eCRCL 49 ML/MIN; eGFR 57 ML/MIN
[2025-03-28] MEDS: MESSAGE TO NURSING IV ONE ×2 (01:50→09:28)
[2025-03-28] MEDS: polyvinyl alcohol eye drops 15ML BOTTLE LEFTEYE PRN (07:47)
[2025-03-28] MEDS ORDERED: LIDOcaine 1% 30ml preserv. free vial ONE (11:17)
[2025-03-28] MEDS ORDERED: midazolam 1 mg/ML 2ml injection ONE (11:17)
[2025-03-28] MEDS ORDERED: fentaNYL/PF 50MCG/1 ML 2ML syringe ONE (11:17)
[2025-03-28] MEDS ORDERED: heparin 1,000unit/ml 10ml vial 0 ML ONE (11:17)
[2025-03-28] MEDS ORDERED: iohexol 350 MG/ML 50ML vial IV ONE (11:17)
[2025-03-28] MEDS ORDERED: tirofiban 12.5mg in NS 250mL 0 ML IV ONE (11:17)
[2025-03-28] MEDS ORDERED: ondansetron/PF 4mg/2ml inj IV PRN (13:20)
[2025-03-28] MEDS ORDERED: OXAZEpam 15mg capsule PO PRN (13:20)
[2025-03-28] MEDS ORDERED: HYDROcodone/acetaminophen 5mg/325mg tablet PO PRN ×2 (13:20→13:50)
--- NOTE | 2025-03-28 13:29 | CARDIAC CATH REPORT ---
Cardiology Post Cath Findings Findings Findings: Cardiac catheterization note; uncomplicated left heart catheterization left ventriculography coronary arteriography. Manual compression postprocedure due to heavy calcification in iliac femorals. Indication: Anginal symptoms fixed large defect anterior segment. Status post RCA and LAD stenting. General care at [facility]. Multiple past strokes right hemisphere left hemisphere and cerebellum. Unrealistic expectations from patient and . Findings 1. Anterior wall apex apical inferior segment akinetic ejection fraction approximately 35 %. There appears to be a small apical thrombus. 2. Heavily calcified coronary arteries stents are all patent. 3. 60% proximal left circumflex 40% left anterior descending 30% in right coronary artery. Comment: Patient has multiple musculoskeletal: Joints pains and has progressive inability to take care of himself from his multiple strokes. The in the patient's are under the impression that he has had a recent stroke prior to hospitalization an MRI of the brain may be helpful. Cardiac horn he can be discharged at your convenience once he has been ambulating tomorrow. Resume his Eliquis. ANIL LORD MD Mar 28, 2025 13:29
[2025-03-28] MEDS ORDERED: DICLOFENAC SODIUM 1% gel 1 50GM tube TP PRN (13:50)
[2025-03-28] MEDS ORDERED: erythromycin ophthalmic ointment 1gm tube LEFTEYE PRN (13:55)
[2025-03-28] MEDS: HYDROcodone/acetaminophen 10/325mg tab PO ONE (17:50)
--- NOTE | 2025-03-28 20:12 | PROGRESS NOTE- Residence ---
Progress Note - Resident Providers to CC Resident Creating Document: DONAVON LAWS RES ~ Antibiotic Timeout Antibiotic Ordered?: No Subjective Seen and examined patient at the bedside patient underwent catheterization today by . No acute overnight symptoms are reported Objective Vital Signs Date Time Temp Pulse Resp B/P (MAP) Pulse Ox O2 Delivery O2 Flow Rate FiO2 03/28/25 17:50 13 03/28/25 17:00 54 92/54 (67) 97 03/28/25 15:00 97.7 03/28/25 13:30 Room Air 03/27/25 20:42 0.0 03/27/25 20:33 21 Result Diagram: 03/28/25 0116 03/28/25 0116 Awake , alert, and oriented x4 HEENT: Atraumatic, normocephalic, EOMI, Eyes are dry and red Neck: Trachea midline. Supple, full range of motion, no JVD Cardiac: Regular rhythm, regular rate with no murmurs all over the precordium. Respiratory: Equal breath sounds bilaterally, no tachypnea, no wheezing ,rub or rales, Chest wall is symmetric and without deformity. Gastrointestinal: Abdomen symmetric, non-distended, soft, non-tender, normal bowel sounds x4 quadrant, normoactive, no hepatosplenomegaly Musculoskeletal: No pedal edema Neurological: Mental status exam: alert and consciousness, orientation, memory, speech Left upper limb and lower limb power 4/5, No new onset focal deficit, gross cranial nerve exam- normal Extremities : No Edema, peripheral pulses felt, No deformities,Discoloration of the both lower extremities however no pedal edema no clubbing, no deformities, peripheral pulses- 2+ Psychiatric:Appropriate mood and affect,No hallucinations or suicidal ideation Coagulation Studies Laboratory Tests Test 03/26/25 18:21 03/28/25 15:42 Prothrombin Time 11.3 SECONDS (9.0-12.0) INR International Normalized Ratio 1.1 INR Activated Partial Thromboplast Time 29 SECONDS (22-32) APTT (Heparin Protocol) 28 SECONDS (45-60) L Coagulation Comments Advance Care Planning Advanced Care plannin - 30 Minutes Plan Plan 75-year-old male with past medical history of PAF on apixaban, CVA with left- sided hemiparesis, CAD s/p stents to LAD, RCA, hypertension, type 2 diabetes mellitus presented to the ER with chief complaints of chest pain at rest. NSTEMI CAD-s/p stents to LAD, RCA, heart score- 6, LIDIA score- 5-, sandra score- 114 (6 %-Probability of from admission to 6 months) Initial EKG showed sinus Tyrese, low voltage complexes in limb leads, T-wave inversions in V2 to V6, I, aVL with lead progression of R-wave high sensitivity troponins 130<114<117, Echo Shows-LVEF 50-55 %, RVSP 30 mmHg Lexiscan-no reversible perfusion,Fixed anterior wall, apical defects, left ventricular ejection fraction is 34 %. Nitroglycerin p.r.n. for chest pain, in view of bradycardia we would not initiate metoprolol Patient underwent angiogram-Anterior wall apex apical inferior segment akinetic ejection fraction approximately 35 %. There appears to be a small apical thrombus. Heavily calcified coronary arteries stents are all patent. 60% proximal left circumflex 40% left anterior descending 30% in right coronary artery. Discontinued heparin drip Continue aspirin 81 mg once daily, atorvastatin 40 mg once daily We will start Eliquis 5 mg p.o. b.i.d. from a.m., nitroglycerin p.r.n. for chest pain Paroxysmal atrial fibrillation CHADS-VASc 6-last EKG sinus Heart rate is running at 54 beats per minute We will continue Eliquis from a.m Hypertension Current Blood pressure is 92/54-In View of Soft Blood pressure-We are currently Holding Home Blood pressure Meds Congestive heart failure with mildly reduced ejection-not in acute exacerbation Per patient he uses lasix and spironolactone since 2006 for is dx CHF at that time he intially has 25% ef but later improved but this is per patient Patient denies any symptoms of volume overload Pro BNP-245, chest x-ray-No acute disease. Echocardiogram-shows LVEF 50-55%, RVSP 30 mmHg In view of very low blood pressure we are not continuing home med Lasix and spironolactone-we will continue once blood pressure normalizes Type 2 diabetes mellitus with A1c of 6.6 Continue low-dose insulin 6 units t.i.d. and low-dose supplemental insulin protocol Chronic pain Muscle spasm Started on Outing 10 p.r.n., cyclobenzaprine Acute Kidney Injury Silvia renal tubular stasis cr-1.25 Urine Sodium-29, Urine Urea-142 CVA with left residual hemiparesis has a new onset gait difficulties for the past one month CT head Shows -No acute intracranial abnormality. If there is concern for acute process, MRI of the brain without intravenous contrast is recommended. Sequelae of prior right temporal and medial right occipital lobe infarcts. Sequelae of prior left cerebellar infarct. Mild to moderate chronic microvascular ischemic changes. Continue home meds Plavix Obstructive sleep apnea- uses CPAP intermittently BPH -continue his home medications of tamsulosin Anxiety Continue home med zolpidem Code Status: Full code Line/tube: PIV DVT prophylaxis: Heparin Nutrition: Heart healthy diet PT: Yes Prognosis: Guarded Disposition: Continue care in PCU, we will start Eliquis from a.m., pending PT Donavon Laws PGY1-Internal Medicine Resident Date of Service: Mar 28, 2025 Billing Provider: TRISH LITTLE MD Common Visit Codes: [id number] INP/OBS CARE(HIGH) DONAVON LAWS, RES Mar 28, 2025 20:12 TRISH LITTLE MD Mar 29, 2025 06:56
[2025-03-29 02:00] VITALS: BP 124/52; PULSE 48; RESP 12; TEMP 97.5; O2SAT 98
[2025-03-29 06:00] VITALS: BP 109/52; PULSE 85; RESP 12; TEMP 97.9; O2SAT 93
[2025-03-29 07:21] LABS: MEAN PLATELET VOLUME 8.1 FL (7.4-10.4); RED CELL DISTRIBUTION WIDTH 13.2 % (11.5-14.5)
[2025-03-29 07:43] LABS: CHOL/HDL RATIO 2.8 (0.00-4.99); CREATININE 1.18 MG/DL (0.60-1.10); LDL CHOLESTEROL 46 MG/DL (50-100); TOTAL CARBON DIOXIDE 28.0 MMOL/L (24-32); eCRCL 52 ML/MIN; eGFR 61 ML/MIN
[2025-03-29] MEDS: HYDROcodone/acetaminophen 10/325mg tab PO PRN (07:54)
[2025-03-29 08:00] VITALS: RESP 12; O2SAT 93
[2025-03-29 08:19] VITALS: PULSE 60; RESP 18; O2SAT 95
[2025-03-29 11:00] VITALS: BP 106/65; PULSE 78; RESP 15; TEMP 97.5; O2SAT 96
[2025-03-29] MEDS ORDERED: CLOP75TA34 PO (12:10)
[2025-03-29] MEDS ORDERED: ASPI-1265 PO (12:25)
--- NOTE | 2025-03-29 21:58 | DISCHARGE SUMMARY-Residence ---
Discharge Summary Providers to CC Resident Creating Document: DONAVON LAWS, RES ~ Discharge Summary Admission Diagnosis: NSTEMI Hospital Course DATE OF ADMISSION: 03/26/2025 DATE OF DISCHARGE: 03/29/2025 Discharge Diagnosis\Comment: NSTEMI Atrial fibrillation Chronic pain Operations\Procedures: Angiogram Consultants: Dr. Washburn Complications: None Condition on DC: Stable New Medications: Aspirin (Aspirin) 81 Mg Tab.chew 1 TAB PO DAILY for 30 Days, #30 TAB.CHEW Clopidogrel Bisulfate (Clopidogrel) 75 Mg Tablet 75 MG PO DAILY for 60 Days, #60 TAB 2 Refills Do not stop medication unless instructed by prescriber. Continued Medications: [albuterol] () INHALER 90 MCG INH BID Apixaban (Eliquis) 5 Mg Tablet 5 MG PO BID, TAB Diclofenac Sodium (Diclofenac Sodium) 1 % Gel..gram. 1 APPLIC TOP PRN for 21 Days, #100 GM 0 Refills Erythromycin Base Opth. Ointment* (Erythromycin Opth. Ointment*) 1 Gm Tube 1 APPLIC LEFTEYE HS PRN for eye irritation, #1 EACH Ezetimibe (Zetia) 10 Mg Tablet 1 TAB PO HS for 30 Days, #30 TAB 0 Refills Furosemide (Furosemide) 40 Mg Tablet 1 TAB PO PRN for 30 Days, #30 TAB 0 Refills Hydrocodone Bit/Acetaminophen 5/325 MG (Kouts 5/325 MG) 5 Mg/325 Mg Tablet 2 TAB PO Q6H PRN for moderate or severe pain, TAB Insulin Glargine,Hum.rec.anlog (Insulin Glargine Max Solostar) 300 Unit/Ml (3 Ml) Insuln.pen 5 UNIT SUBCUT DAILY Ketoconazole (Ketoconazole) 2 % Cream..g. 1 APPLIC TOP DAILY for 7 Days, #15 GM 0 Refills apply to affected area(s) Meclizine HCl (Meclizine HCl) 25 Mg Tablet 1 TAB PO PRN for 30 Days, #90 TAB chew tab Nitroglycerin (Nitroglycerin) 0.4 Mg Tab.subl 0.4 MG SL PRN for chest pain , TAB [olodaterol/tiotrop] () 2.5 MCG INH PRN PRN Q2-3 DAYS Pantoprazole Sodium (Pantoprazole Sodium) 40 Mg Tablet.dr 1 TAB PO DAILY for 30 Days, #30 TAB 0 Refills Propylene Glycol (Systane Balance) 0.6 % Drops 1 DROP EACHEYE DAILY, #10 ML 0 Refills Rosuvastatin Calcium (Rosuvastatin Calcium) 40 Mg Tablet 1 TAB PO DAILY for high cholesterol for 30 Days, #30 TAB 0 Refills Simethicone (Simethicone) 80 Mg Tab.chew 1 TAB PO Q6H for gas for 6 Days, #20 TAB 0 Refills Spironolactone (Aldactone) 25 Mg Tablet 1 TAB PO DAILY for blood pressure for 30 Days, #30 TAB 0 Refills Tamsulosin Hcl* (Flomax*) 0.4 Mg Cap.sr.24h 1 CAP PO DAILY for 30 Days, #30 CAP Zolpidem Tartrate* (Ambien*) 5 Mg Tablet 2 TAB PO HS for 30 Days, #30 TAB 10mg Discharge Summary: History of present illness 75-year-old male with past medical history of PAF on apixaban, CVA with left-sydnie ed hemiparesis, CAD s/p stents to LAD, RCA, hypertension, type 2 diabetes mellitus presented to the ER with chief complaints of chest pain. He describes pain in the epigastrium, sharp, tightening sensation, associated with shortness of breaths, radiating to left lateral on associated with paresthesias, which started at 10:00 a.m. yesterday it persisted for 30 minutes to 1 hour and then relieved spontaneously. He had similar kind of chest pain today morning and the shortness of breath was worsening. He has no history of recent sildenafil intake. Denies fever palpitations, dizziness. He had similar kind of chest pain in 2006 and undergone stents that time. Currently pain is relieved however he is feeling anxious. [facility] Hospital course- A 75 years old male with past medical history of paroxysmal atrial fibrillation, CVA, coronary artery disease status post stent to LAD, RCA and hypertension, type 2 diabetes mellitus comes to ED with the severe chest pain and his initial troponins are trending and EKG shows sinus bradycardia with T-wave inversions and patient was immediately started on heparin drip with aspirin and atorvastatin and nitroglycerin for chest pain. His Lexiscan shows no reversible perfusion, fixed anterior wall and apical defect and left ventricular ejection fraction [address] Ramirez was involved in the care and patient underwent a cardiac catheterization without stent and the day of discharge patient reports improvement in his symptoms and his chronic pain is managed with Kouts and vitals are stable and PT evaluated the patient and he is discharged to home. Vital Signs Date Time Temp Pulse Resp B/P (MAP) Pulse Ox O2 Delivery O2 Flow Rate FiO2 03/29/25 11:00 97.5 78 15 106/65 (79) 96 Room Air 03/29/25 08:19 0 21 Laboratory Tests Test 03/28/25 01:16 03/28/25 06:43 03/28/25 07:46 03/28/25 15:42 White Blood Count 5.5 X10'3 Red Blood Count 4.49 X10'6 Hemoglobin 13.8 g/dl Hematocrit 40.0 % Mean Corpuscular Volume 89.1 FL Mean Corpuscular Hemoglobin 30.7 PG Mean Corpuscular Hemoglobin Concent 34.4 g/dL Red Cell Distribution Width 13.4 % Platelet Count 182 X10'3 Mean Platelet Volume 7.8 FL Neutrophils (%) (Auto) 49.4 % Lymphocytes (%) (Auto) 32.5 % Monocytes (%) (Auto) 9.3 % Eosinophils (%) (Auto) 7.4 % Basophils (%) (Auto) 1.4 % Neutrophils # (Auto) 2.7 X10'3 Lymphocytes # (Auto) 1.8 X10'3 Monocytes # (Auto) 0.5 X10'3 Eosinophils # (Auto) 0.4 X10'3 Basophils # (Auto) 0.1 X10'3 CBC Comment APTT (Heparin Protocol) 48 SECONDS 63 SECONDS 28 SECONDS Coagulation Comments Sodium Level 139 MMOL/L Potassium Level 4.0 MMOL/L Chloride Level 104 MMOL/L Carbon Dioxide Level 30.4 MMOL/L Anion Gap 5 Blood Urea Nitrogen 7 MG/DL Creatinine 1.25 MG/DL Estimated GFR/1.73 m2 57 ML/MIN BUN/Creatinine Ratio 5.6 Glucose Level 109 MG/DL Calcium Level 8.6 MG/DL Magnesium Level 1.9 MG/DL Total Bilirubin 0.4 MG/DL Aspartate Amino Transf (AST/SGOT) 20 U/L Alanine Aminotransferase (ALT/SGPT) 24 U/L Alkaline Phosphatase 62 IU/L Total Protein 7.3 G/DL Albumin 3.9 G/DL Globulin 3.4 G/DL Albumin/Globulin Ratio 1.1 Chemistry Comments Glucometer 99 mg/dl Test 03/28/25 16:01 03/28/25 22:01 03/29/25 06:32 03/29/25 06:45 Glucometer 147 mg/dl 122 mg/dl 101 mg/dl White Blood Count 5.6 X10'3 Red Blood Count 4.23 X10'6 Hemoglobin 13.0 g/dl Hematocrit 38.0 % Mean Corpuscular Volume 89.8 FL Mean Corpuscular Hemoglobin 30.8 PG Mean Corpuscular Hemoglobin Concent 34.2 g/dL Red Cell Distribution Width 13.2 % Platelet Count 165 X10'3 Mean Platelet Volume 8.1 FL Neutrophils (%) (Auto) 57.1 % Lymphocytes (%) (Auto) 25.9 % Monocytes (%) (Auto) 9.0 % Eosinophils (%) (Auto) 7.1 % Basophils (%) (Auto) 0.9 % Neutrophils # (Auto) 3.2 X10'3 Lymphocytes # (Auto) 1.5 X10'3 Monocytes # (Auto) 0.5 X10'3 Eosinophils # (Auto) 0.4 X10'3 Basophils # (Auto) 0.1 X10'3 CBC Comment Sodium Level 139 MMOL/L Potassium Level 3.8 MMOL/L Chloride Level 105 MMOL/L Carbon Dioxide Level 28.0 MMOL/L Anion Gap 6 Blood Urea Nitrogen 8 MG/DL Creatinine 1.18 MG/DL Estimated GFR/1.73 m2 61 ML/MIN BUN/Creatinine Ratio 6.8 Glucose Level 97 MG/DL Calcium Level 8.2 MG/DL Magnesium Level 1.9 MG/DL Total Bilirubin 0.5 MG/DL Aspartate Amino Transf (AST/SGOT) 15 U/L Alanine Aminotransferase (ALT/SGPT) 17 U/L Alkaline Phosphatase 56 IU/L Total Protein 6.5 G/DL Albumin 3.4 G/DL Globulin 3.1 G/DL Albumin/Globulin Ratio 1.1 Triglycerides Level 116 MG/DL Cholesterol Level 96 MG/DL LDL Cholesterol 46 MG/DL HDL Cholesterol 34 MG/DL Cholesterol/HDL Ratio 2.8 Chemistry Comments Test 03/29/25 11:21 Glucometer 146 mg/dl Physical examination Awake , alert, and oriented x4 HEENT: Atraumatic, normocephalic, EOMI, Eyes are dry and red Neck: Trachea midline. Supple, full range of motion, no JVD Cardiac: Regular rhythm, regular rate with no murmurs all over the precordium. Respiratory: Equal breath sounds bilaterally, no tachypnea, no wheezing ,rub or rales, Chest wall is symmetric and without deformity. Gastrointestinal: Abdomen symmetric, non-distended, soft, non-tender, normal bowel sounds x4 quadrant, normoactive, no hepatosplenomegaly Musculoskeletal: No pedal edema Neurological: Mental status exam: alert and consciousness, orientation, memory, speech Left upper limb and lower limb power 4/5, No new onset focal deficit, gross cranial nerve exam- normal Extremities : No Edema, peripheral pulses felt, No deformities,Discoloration of the both lower extremities however no pedal edema no clubbing, no deformities, peripheral pulses- 2+ Psychiatric:Appropriate mood and affect,No hallucinations or suicidal ideation Imaging at hospitalization Chest g-[id number] Echocardiogram-shows LVEF is about 50%., RVSP [address] without contrast-No acute intracranial abnormality Lexiscan-No reversible perfusion defect. Fixed anterior wall defect. Fixed apical defect. Discharge instructions and discharge medications follow up with PCP and Senior Electronics Technician In 2weeks Coninue Clopidogrel 75mg po daily for 3 months and Asprin 81 mg po daily CBC and CMP in a month. Not starting on rate control agents for Paroxysmal Afib as heart rate is low- follow up with PCP Call 911 or Come to Emergency room if sever shortness of breath , Chest pain or dizziness develops. New Medications: Aspirin 81 Mg Tab.chew Clopidogrel Bisulfate (Clopidogrel) 75 Mg Tablet Do not stop medication unless instructed by prescriber. *Problems/Diagnosis: (1) NSTEMI (non-ST elevated myocardial infarction) Status: Acute Total Time Spent on D/C: Up to 30 Minutes Date of Service: Mar 29, 2025 Billing Provider: TRISH LITTLE MD Common Visit Codes: [id number] DISCH DAY >30min DONAVON LAWS, ROBIN Mar 29, 2025 21:56 TRISH LITTLE MD Mar 30, 2025 08:42
[2025-03-30] MEDS ORDERED: HYDR-3973 PO (08:37)
--- NOTE | 2025-03-30 18:17 | CARDIOLOGY REPORT ---
DATE OF SERVICE: 03/28/2025 DICTATING PHYSICIAN: Byron Washburn MD PROCEDURES: * Left heart catheterization. * Left ventriculography. * Selective left and right coronary arteriography. * Conscious sedation administration 30 minutes. * Right iliofemoral arteriogram. * Mynx closure device deployment. BRIEF HISTORY/INDICATION: A 75-year-old male who has scheduled at [facility] was sent to the hospital for angina pectoris, elevated troponin. He subsequently had a nuclear stress test with predominantly fixed anterior defect. Ejection fraction reported at 34%. In 2006, he had an anterior wall GA and stroke at that time, as he had had an apical thrombus. He is status post left anterior descending and right coronary stent with ejection fraction of 40%. His strokes in 2006 and subsequently later included the right temporal, right occipital and the left cerebellar. Risks, benefits, and alternatives of diagnostic heart catheterization were discussed with him and his as he presented with typical substernal chest pain up into his neck and jaw and the and he are convinced that his deterioration is due to hemodynamically significant coronary artery disease and not due to his age with multiple past strokes. Risks of the procedure included, but not restricted to , stroke, myocardial infarction, renal failure, neurologic or vascular complication, bleeding complications, allergic reaction. He desires stenting if there is critical stenosis. TECHNIQUE: Following usual sterile preparation and draping, the right groin was infiltrated with 10 mL of 1% lidocaine local anesthetic. Conscious sedation was achieved with 25 mg of Benadryl, 2 mg Versed, 50 mcg of fentanyl. The patient came to the component lab tech with intravenous heparin at 500 units per hour. In component lab tech, he was found to be hypotensive and he received 250 mL of normal saline bolus. He was maintained on oxygen 2 liters per minute, normal saline 100 mL per hour. A 6-Divehi sheath was placed in the right femoral artery. Selected left and right coronary artery multiple projectional obliquities were performed with 6-Divehi Rei-shaped catheters. Left ventriculography in right anterior oblique projection with 6-Divehi straight pigtail catheter. Catheter exchanges were under fluoroscopic guidance with J-tip guidewire lead. The patient complained throughout the procedure, moving restless legs, uncooperative, offering directions. 90 mL of Omnipaque 350 contrast was administered. Fluoroscopy time was 3.4 minutes. Radiation exposure was 4,267 cm2. There were no complications. At termination, Mynx Compounder closure device was used as the right common femoral artery was excessively calcified for other closure devices. FINDINGS: 5 feet 7 inches, 165 pounds, 75-year-old male, AO 100/43, LV 100/0-1. LEFT VENTRICULOGRAM: Mid anterior apical, inferior apical segment is akinetic. There appears to be small apical left ventricular thrombus. Superior basal portion is moderately hypokinetic. Inferior is moderately hypokinetic. Ejection fraction is approximately 35%. Trivial mitral regurgitation. There is heavy right iliac, common femoral artery calcification. CORONARY ARTERIES: Left main coronary artery, left anterior descending, and left circumflex are calcific. There is 20% left main coronary artery narrowing. There is 30% diffuse left anterior descending in-stent narrowing. It is a large vessel wrapping around the apex of the myocardium. There is serial 30% mid left anterior descending narrowings. The left circumflex has a proximal mildly tortuous 60% narrowing. The obtuse marginal reaches the apex of the myocardium. There are narrow left atrial branches. Right coronary has heavy calcification. There is a 3 cm in length, 50% proximal to mid narrowing. Posterior descending and posterolateral are 1.75 mm in diameter. The right coronary stent between the acute margin and the crux of the right coronary has a 60% focal mid narrowing. There is LIDIA 3 flow. RESULTS: * Two-thirds of anterior segment left ventricle akinetic, apex akinetic, inferior apical portion akinetic, small apical thrombus. Moderate inferior hypokinesis. Ejection fraction 30-35%. * Heavy calcification of left main coronary, left anterior descending, left circumflex and right coronary arteries. * 20% left main coronary narrowing. * 30% diffuse left anterior descending stent narrowing. Serial 30% mid left anterior descending narrowing. * 60% proximal left circumflex. * 3 cm in length proximal to mid 50% right coronary narrowing. 60% mid stent narrowing between the acute margin and the posterior descending artery. COMMENT: The patient has heavily calcific moderate multivessel coronary artery disease. He is recommended for continued risk factor intervention and medical therapy. I would perform an MRI to exclude recent cerebrovascular accident. Byron Washburn MD TID: [id number] RECEIPT: [id number] TR/IAN cc: [facility]
== END 2025-03-29 16:20 | disposition home health service (06) | DRG 280 ==
LOC: ER 18:07 → ED HOLD 19:34 → PCU 3S 20:36
PROVIDERS: ADMIT Internal Medicine Pulmonary Disease; ATTEND Internal Medicine
PROC: 4A02XM4 Measurement of Cardiac Total Activity, External Approach (ICD-10-PCS; 2025-03-27)
PROC: 3E033HZ Introduction of Radioactive Substance into Peripheral Vein, Percutaneous Approach (ICD-10-PCS; 2025-03-27)
PROC: 4A023N7 Measurement of Cardiac Sampling and Pressure, Left Heart, Percutaneous Approach (ICD-10-PCS; principal; 2025-03-28)
PROC: B2111ZZ Fluoroscopy of Multiple Coronary Arteries using Low Osmolar Contrast (ICD-10-PCS; 2025-03-28)
PROC: B2151ZZ Fluoroscopy of Left Heart using Low Osmolar Contrast (ICD-10-PCS; 2025-03-28)
PROC: B41F1ZZ Fluoroscopy of Right Lower Extremity Arteries using Low Osmolar Contrast (ICD-10-PCS; 2025-03-28)
DX: I21.4 Non-ST elevation (NSTEMI) myocardial infarction (principal); N17.0 Acute kidney failure with tubular necrosis; I50.20 Unspecified systolic (congestive) heart failure; N17.9 Acute kidney failure, unspecified; Z79.01 Long term (current) use of anticoagulants; I69.954 Hemiplegia and hemiparesis following unspecified cerebrovascular disease affecting left non-dominant side; I11.0 Hypertensive heart disease with heart failure; E11.40 Type 2 diabetes mellitus with diabetic neuropathy, unspecified; J44.9 Chronic obstructive pulmonary disease, unspecified; G47.33 Obstructive sleep apnea (adult) (pediatric); E78.5 Hyperlipidemia, unspecified; I48.0 Paroxysmal atrial fibrillation; F41.9 Anxiety disorder, unspecified; N40.0 Benign prostatic hyperplasia without lower urinary tract symptoms; K21.9 Gastro-esophageal reflux disease without esophagitis
CPT/HCPCS: 36415; 70450; 71045; 78452; 80048; 80053; 80061; 81001; 81003; 82570; 82948; 83036; 83735; 83880; 83935; 84156; 84300; 84484; 84540; 85025; 85610; 85730; 87081; 93005; 93017; 93306; 93458; 94640; 94760; 97161; 97530; 99152; 99153; 99291; A6258; A6590; A9500; C1758; G0378; J0280; J1200; J1644; J1815; J2003; J2250; J2785; J3010; J3246; J7030; Q9967